=== PATIENT | female | born 1985 | race Caucasian/White ===

== ENCOUNTER 2020-06-01 18:13 | Emergency (ER) | payer SELFPAY ==
[2020-06-01 18:44] VITALS: BP 158/83; PULSE 84; RESP 20; TEMP 36.7; O2SAT 100; BMI 29.9
[2020-06-01 20:03] VITALS: BP 153/105; PULSE 83; RESP 18; O2SAT 96
--- NOTE | 2020-06-01 20:03 | ED_ITS ---
HPI - Headache General: Chief Complaint: Headache Stated Complaint: HEADACHE/ ELEVATED BLOOD PRESSURE Time Seen by Provider: 06/01/20 20:02 Source: patient Mode of arrival: ambulatory Limitations: no limitations History of Present Illness: HPI Narrative: Patient comes in today with complaints of headache since 8:00 this morning. Patient also reports some chest discomfort. Patient has a history of hypertension with treatment with diltiazem and lisinopril. Patient right now is incarcerated for outstanding warrant for no-show record. Patient reports a history of substance abuse with her last use of methamphetamines over 1 month. Patient reports history of a small stroke. No deficits noted. NIHSS is 0. Review of Systems General: Reports: 10 or more systems reviewed and unremarkable except in HPI and below Neuro: Reports: headache(s) [facility] ED Female Reproductive History: Date of last menstrual period: 04/30/20 Physical Exam Const: COMMON NORMALS: no acute distress and patient oriented x3 GENERAL APPEARANCE: cooperative HENMT: COMMON NORMALS: normocephalic and Normal external nose present HEAD & SCALP: normal to inspection and normocephalic NOSE: Normal external nose present MOUTH: Normal oral and palatal mucosa present THROAT: posterior oropharynx normal Eye: GENERAL EYE: appearance normal, both eyes and all related structures Neck/C-Spine: COMMON NORMALS: full ROM Lymph: LYMPHATIC: no lymphadenopathy noted Chest: COMMONS NORMALS: normal inspection of the chest Resp: COMMON NORMALS: normal respiratory effort EFFORT & INSPECTION: Yes able to speak in complete sentences Cardio: COMMON NORMALS: regular rate and regular rhythm RATE: regular rate RHYTHM: regular rhythm GI: COMMON NORMALS: non-tender Back/Pelvis: COMMON NORMALS: thoracic and lumbar spine normal to inspection Extremity: COMMON NORMALS: normal to inspection Neuro: COMMON NORMALS: patient oriented x3 and moves all extremities Psych: COMMON NORMALS: mental status grossly normal and cooperative Skin: COMMON NORMALS: no rashes or lesions noted GENERAL SKIN EXAM: no rashes or lesions noted Course Vital Signs: Vital signs: Vital Signs Temperature 98.1 F 06/01/20 18:44 Pulse Rate 88 06/01/20 20:30 Respiratory Rate 18 06/01/20 20:45 Blood Pressure 141/100 06/01/20 20:30 Pulse Oximetry 99 06/01/20 20:30 MDM - Headache MDM Narrative: Medical decision making narrative: Patient comes in with headache and chest discomfort. Patient reports uncontrolled blood pressure. Patient is recently been arrested and is in custody. Exam notes lungs are clear to auscultation. Heart rates regular. Normal EKG. Differential diagnosis includes CVA, hypertensive crisis, uncontrolled hypertension, ACS. EKG was normal sinus rhythm. Troponin was normal levels. Patient had symptoms since this morning so with no elevation of troponin levels at this time 12 hours after start of symptoms I do not feel is necessary for further testing. CT of the head noted no acute infarction or bleed. Laboratory values were unremarkable. Reviewed exam with patient with recommendations for treatment of blood pressure. Patient was treated for headache with Reglan and Benadryl with good results. Patient reported understanding of care plan and need for follow-up. Lab Data: Labs: Lab Results 06/01/20 06/01/20 06/01/20 Range/Units 20:32 20:32 20:32 WBC 15.1 H (4.0-10.0) 10^3/ uL RBC 4.64 (4.1-5.3) 10^6/u L Hgb 13.9 (11.5-15.3) g/dL Hct 41.5 (37.0-47.0) % MCV 89.4 (81-99) fL MCH 30.0 (28.0-34.0) pg MCHC 33.5 (30.0-36.0) g/dL RDW 12.0 L (12.1-15.1) % Plt Count 417 H (130-400) 10^3/c mm MPV 9.3 (7.4-10.4) fL Neut % (Auto) 71.8 % Lymph % (Auto) 19.3 % [place] % (Auto) 6.1 % Eos % (Auto) 1.9 % Baso % (Auto) 0.4 % Neut # (Auto) 10.84 H (1.8-7.7) 10^3/u L Lymph # (Auto) 2.9 (0.8-4.8) 10^3/u L [place] # (Auto) 0.9 (0.2-0.9) 10^3/u L Eos # (Auto) 0.3 (0.0-0.8) 10^3/u L Baso # (Auto) 0.1 (0.0-0.1) 10^3/u L Nucleated RBC % (a uto) 0 % Nucleated RBCs # 0.0 /100WBC Sodium 138 (136-145) mmol/L Potassium 3.9 (3.5-5.1) mmol/L Chloride 102 (98-107) mmol/L Carbon Dioxide 25 (22-29) mmol/L Anion Gap 14.9 (5-19) BUN 15 (6-20) mg/dL Creatinine 0.5 (0.5-0.9) mg/dL GFR Calculation 139.6 H (90-130) mL/min Glucose 91 (65-115) mg/dL Calculated Osmolal ity 286 (285-295) mOsm/k g Calcium 9.1 (8.5-10.5) mg/dL Total Bilirubin 0.6 (0.15-1.2) mg/dL AST 11 (0-32) U/L ALT 13 (0-33) U/L Alkaline Phosphata se 99 (35-105) IU/L Troponin T Gen 5 n g/L 6 (0-10) ng/L Total Protein 6.4 L (6.6-8.7) g/dL Albumin 4.1 (3.5-5.2) g/dL Globulin 2.3 (1.3-4.6) g/dL EKG Data^: EKG 1: Attestation: I personally reviewed and interpreted this EKG as follows: (2104, normal EKG, normal sinus rhythm with a rate of 77 bpm, no ectopy, no ST elev ation.) Discharge Plan Discharge Patient Disposition: Home Clinical Impression: Hypertension Qualifiers: Hypertension type: essential hypertension Qualified Code(s): I10 - Essential (primary) hypertension Condition: Stable Prescriptions: New hydrochlorothiazide 12.5 mg tablet 12.5 mg PO QAM Qty: 30 RF: 0 clonidine HCl 0.1 mg tablet 0.1 mg PO .qhs Qty: 30 RF: 0 Discharge Orders: Discharge Order (Routine); Ordered 06/01/20 Ordered By: Tay Triana Discharge Diet: Usual diet Discharge Activity: Increase activity as tolerated Patient Instructions: Hypertension (ED) Activity Restrictions/Additional Instructions: Activity as tolerated. Take medications as directed. Follow-up with primary care. Return to the emergency department for new concerns. Coding Level of Care Code ED Laundry Tub Maker for Chg Fwd Exam Comprehensive
--- NOTE | 2020-06-01 20:09 | ECG_ITS ---
[facility] Test Date: 2020-06-01 Pat Name: Cori De Souza Department: Room: Gender: Female Carousel Operator: : 1985 Requested By: Tay Evans Order Number: [id number] Burns MD: Paulette Eldridge M.D. Measurements Intervals [place] Rate: 77 P: 62 CO: 180 QRS: 53 QRSD: 92 T: 72 QT: 397 QTc: 451 Interpretive Statements SINUS RHYTHM No previous ECG available for comparison Electronically Signed On 06-02-2020 18:16:55 CDT by Paulette Eldridge M.D. [id number]
--- NOTE | 2020-06-01 20:09 | CTR_ITS ---
PROCEDURE INFORMATION: Exam: CT Head Without Contrast Exam date and time: 06/01/2020 8:13 PM Age: 34 years old Clinical indication: Pain; Headache not specified; Patient HX: C/O RODRÍGUEZ w HTN; Additional info: Headache, HTN TECHNIQUE: Imaging protocol: Computed tomography of the head without contrast. Radiation optimization: All CT scans at this facility use at least one of these dose optimization techniques: automated exposure control; mA and/or kV adjustment per patient size (includes targeted exams where dose is matched to clinical indication); or iterative reconstruction. COMPARISON: No relevant prior studies available. RADIATION DOSE METRICS: Total DLP (mGy-cm): 786.35 FINDINGS: Brain: Normal. No hemorrhage. Unremarkable white matter. No mass effect. Cerebral ventricles: No ventriculomegaly. Bones/joints: Unremarkable. No acute fracture. Paranasal sinuses: Visualized sinuses are unremarkable. No fluid levels. Mastoid air cells: Visualized mastoid air cells are well aerated. Soft tissues: Unremarkable. CT/CT head wo con* [id number] IMPRESSION: No acute intracranial abnormality. Radiation Dose CTDIVOL = (mGy): DLP = 786.35 (mGy-cm)
[2020-06-01 20:30] VITALS: BP 141/100; PULSE 88; RESP 18; O2SAT 99
[2020-06-01 20:45] VITALS: RESP 18
[2020-06-01 20:45] LABS: Basophils # 0.1 10^3/uL (0.0-0.1); Basophils % 0.4 %; Eosinophils # 0.3 10^3/uL (0.0-0.8); Eosinophils % 1.9 %; Hematocrit 41.5 % (37.0-47.0); Hemoglobin 13.9 g/dL (11.5-15.3); Lymphocytes # 2.9 10^3/uL (0.8-4.8); Lymphocytes % 19.3 %; Mean Corpuscular HGB Conc 33.5 g/dL (30.0-36.0); Mean Corpuscular Volume 89.4 fL (81-99); Mean Platelet Volume 9.3 fL (7.4-10.4); Monocytes # 0.9 10^3/uL (0.2-0.9); Monocytes % 6.1 %; Neutrophils # 10.84 10^3/uL (1.8-7.7); Neutrophils % 71.8 %; Nucleated Red Blood Cells % 0 %; Platelet Count 417 10^3/cmm (130-400); Red Blood Count 4.64 10^6/uL (4.1-5.3); White Blood Count 15.1 10^3/uL (4.0-10.0)
[2020-06-01] MEDS: sodium chloride 0.9% 500 ML 999 ML IV (20:45)
[2020-06-01] MEDS: metoclopramide 5 mg/mL SDV 2 mL 10 MG IVP (20:45)
[2020-06-01] MEDS: diphenhydrAMINE 50 mg/mL SDV 1mL 25 MG IVP (20:45)
[2020-06-01 21:12] LABS: Troponin T (5th) Once 6 ng/L (0-10)
[2020-06-01 21:13] LABS: Alanine Aminotransferase 13 U/L (0-33); Albumin Level 4.1 g/dL (3.5-5.2); Alkaline Phosphatase 99 IU/L (35-105); Anion Gap 14.9 (5-19); Aspartate Amino Transferase 11 U/L (0-32); Blood Urea Nitrogen 15 mg/dL (6-20); Calcium 9.1 mg/dL (8.5-10.5); Carbon Dioxide 25 mmol/L (22-29); Chloride 102 mmol/L (98-107); Globulin 2.3 g/dL (1.3-4.6); Glomerular Filtration Rate 139.6 mL/min (90-130); Glucose 91 mg/dL (65-115); Osmolality Calculated 286 mOsm/kg (285-295); Potassium 3.9 mmol/L (3.5-5.1); Sodium 138 mmol/L (136-145); Total Bilirubin 0.6 mg/dL (0.15-1.2); Total Protein 6.4 g/dL (6.6-8.7)
[2020-06-01 21:54] VITALS: BP 141/100
[2020-06-01] MEDS: cloNIDine 0.1 mg Tablet PO (21:54)
== END 2020-06-01 21:54 | disposition home or self-care (01) ==
PROVIDERS: Emergency Provider Nurse Practitioner Family
DX: I10 Essential (primary) hypertension (principal)
CPT/HCPCS: 12345; 70450; 80053; 84484; 85025; 93005; 96374; 96375; 99283; 99284; J1200; J2765; J7040

== ENCOUNTER 2020-10-15 14:18 | Emergency (ER) | payer SELFPAY ==
[2020-10-15 14:37] VITALS: BP 164/100; PULSE 72; RESP 18; TEMP 36.7; O2SAT 98; BMI 36.6
--- NOTE | 2020-10-15 15:12 | DCPLANNER ---
manager reading was asked to speak with patient about getting established with a primary care physician. manager reading spoke with patient, gave patient both of the statistical financial analyst applications for the hospital to fill out and turn in. Patient would like to be established with Dr. Jarquin, comp field case manager gave patient the number to Dr. Avila office, and told patient that she would have to call and get established with Dr. Jarquin. Patient stated that she would fill out the applications and would call the office of Dr. Jarquin and schedule an appointment.
--- NOTE | 2020-10-15 15:21 | PC.PHAR ---
PT STATES WHEN SHE WAS IN NURSING HOME 20 DAYS AGO THE NURSING HOME HAD HER TAKE CLONIDINE 0.1MG BID-PT STATES SHE HASNT HAD THIS MEDICATION FOR 2 WEEKS-EXT MED HISTORY SHOWS LAST FILLED ON 06/03/20 0.1MG PO DAILY-PT STATES SHE HAS BEEN OUT OF HER HCTZ FOR 2 WEEKS
--- NOTE | 2020-10-15 15:24 | W.ED.GENADLT ---
HPI - General Adult General: Chief complaint: General Medical Stated complaint: multiple complaints Time Seen by Provider: 10/15/20 14:46 History of Present Illness: HPI narrative: 34-year-old female presents emergency room concerned that she may have cancer. She palpated a lump in the right axilla. Most disturbed by the fact that her mother was recently diagnosed with cancer. 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 She does not have a PCP is also requesting refills on clonidine and hydrochlorothiazide which she has been out of for over 3 weeks. Onset (ago): day(s) Location: upper extremity (Right axilla) Associated symptoms: Deny chest pain, confusion, cough, diaphoresis, decreased appetite, dyspnea, fevers/chills, headache(s), malaise, nausea, rash, palpitations, seizures, short of breath, syncope, vomiting or weakness Treatments prior to arrival: none Review of Systems Const: Denies: malaise or diaphoresis ENMT: Denies: throat pain, ear or mastoid pain, nasal discharge or nasal congestion Card: Denies: chest pain, palpitations or syncope Resp: Denies: dyspnea GI: Denies: nausea or vomiting : Denies: flank pain, difficulty voiding, dysuria, urinary frequency or urinary urgency Skin/Breast: Denies: rash Neuro: Denies: headache(s) or confusion [facility] ED Female Reproductive History: Date of last menstrual period: 04/23/20 Physical Exam Const: COMMON NORMALS: no acute distress GENERAL APPEARANCE: cooperative and comfortable ORIENTATION/CONSCIOUSNESS: Yes awake, Yes oriented to person, Yes oriented to place and Yes oriented to time HENMT: COMMON NORMALS: normocephalic, atraumatic and hearing grossly normal bilaterally HEAD & SCALP: normocephalic and atraumatic Neck/C-Spine: COMMON NORMALS: no JVD Chest: OTHER: Breast exam with nurse present no lumps masses or lymphadenopathy abnormality noted. Resp: COMMON NORMALS: normal respiratory effort, No retractions, No use of accessory muscles and clear to auscultation bilaterally AUSCULTATION: clear to auscultation bilaterally Cardio: COMMON NORMALS: no JVD, regular rate, regular rhythm and No murmurs present (Cardio) RATE: regular rate RHYTHM: regular rhythm GI: COMMON NORMALS: Soft to palpation and No hepatosplenomegaly present AUSCULTATION: Yes normoactive bowel sounds PALPATION: Yes Soft to palpation, No Tenderness to palpation present (GI), No Guarding due to palpation present (GI) and Yes No hepatosplenomegaly present Extremity: COMMON NORMALS: normal to inspection, capillary refill normal, no clubbing, cyanosis or edema, no calf tenderness and no pedal edema NARRATIVE EXTREMITY EXAM: Right axillary nodule it is superficial in the skin consistent with a superficial abscess that involuted and scarred down. Neuro: SENSORIUM/ORIENTATION: Yes oriented to person, Yes oriented to place and Yes oriented to time Skin: COMMON NORMALS: no rashes or lesions noted GENERAL SKIN EXAM: no rashes or lesions noted Course Vital Signs: Vital signs: Vital Signs Temperature 98.0 F 10/15/20 14:37 Pulse Rate 72 10/15/20 14:37 Respiratory Rate 18 10/15/20 14:37 Blood Pressure 164/100 10/15/20 14:37 Pulse Oximetry 98 10/15/20 14:37 MDM - General Adult MDM Narrative: Medical decision making narrative: Discharge patient home recommend she follow-up with primary care PICC project construction manager will help establish with a primary care. She will need Pap smear and mammogram as well as other routine Discharge Plan Discharge Patient Disposition: Home Clinical Impression: Breast cancer screening Condition: Stable Prescriptions: No Action hydrochlorothiazide 12.5 mg tablet 12.5 mg PO QAM Qty: 30 RF: 0 Aleve 220 mg Tablet 220 mg PO PRN RF: 0 clonidine HCl 0.1 mg tablet 0.1 mg PO BID RF: 0 Discharge Orders: Discharge ED (Routine); Ordered 10/15/20 Ordered By: Jacky Jeong Discharge Diet: Usual diet Discharge Activity: Resume usual activity Patient Instructions: Opioid Safety Activity Restrictions/Additional Instructions: His management will call to schedule you with a primary care doctor to pursue routine health screenings and management of your blood pressure. Coding Level of Care Code ED Paralegal Internship for Alex Patel
--- NOTE | 2020-10-15 15:46 | PC.NURSE ---
breast exam per emd svp present
== END 2020-10-15 15:52 | disposition home or self-care (01) ==
PROVIDERS: Emergency Provider Family Medicine
DX: L98.9 Disorder of the skin and subcutaneous tissue, unspecified (principal)
CPT/HCPCS: 99281

== ENCOUNTER 2021-02-16 09:56 | Emergency (ER) | payer SELFPAY ==
[2021-02-16 10:00] VITALS: BP 167/96; PULSE 78; RESP 24; TEMP 36.3; O2SAT 98; BMI 33.3
--- NOTE | 2021-02-16 10:08 | ECG_ITS ---
[facility] Test Date: 2021-02-16 Pat Name: Cori De Souza Department: Room: Gender: Female Valuation Consultant: : 1985 Requested By: Selwyn Bhandari Order Number: [id number] Kat[place] MD: Chidi Valdivia M.D. Measurements Intervals [place] Rate: 74 P: 26 CO: 163 QRS: 38 QRSD: 92 T: 51 QT: 403 QTc: 448 Interpretive Statements SINUS RHYTHM Compared to ECG 06/01/2020 21:02:45 No significant changes Electronically Signed On 02-17-2021 21:03:03 CDT by Chidi Valdivia M.D. [id number]
--- NOTE | 2021-02-16 10:17 | PC.NURSE ---
Pt reports increased stress over her killing her dog.
--- NOTE | 2021-02-16 10:18 | W.ED.CHESTPA ---
HPI - Chest Pain General: Chief Complaint: Chest Pain Stated Complaint: CHEST PAIN; ANXIETY Time Seen by Provider: 02/16/21 10:11 History of Present Illness: HPI narrative: Presents today from [facility] where she has been in for the last 29 days for methamphetamine abuse. She presents with panic attack type symptoms which include shaking felt anxious chest pressure denies diaphoresis shortness of breath nausea or vomiting. Symptoms seem to start yesterday/today. Said she is having disagreement with her because he killed her dog yesterday. Patient has had panic attacks before has no cardiac history. Has been taking medications as prescribed MD complaint: chest discomfort Onset (ago): hour(s) Timing of current episode: constant Prior episodes: No Onset: awoke with symptoms Pain location: substernal Pain radiation: none Quality: heaviness Relieving factors: nothing Exacerbating factors: stress Context: other (Internally for methamphetamine abuse rehab schedule be out on the ) Associated symptoms: Reports no associated symptoms; Deny abdominal pain, dyspnea, fever(s), nausea or vomiting Treatment prior to arrival: none Review of Systems Const: Denies: fever(s), chills or body aches Eyes: Denies: change in vision or blurry vision ENMT: Denies: throat pain or nasal congestion Card: Reports: other (Pressure in chest); Denies: chest pain or dyspnea on exertion Resp: Denies: dyspnea, productive cough or non-productive cough GI: Denies: abdominal pain, nausea or vomiting Musc: Denies: extremity pain Skin/Breast: Denies: rash Neuro: Denies: headache(s) Psych: Reports: anxiety; Denies: depression Rusty/Lymph: Denies: easy bruising [facility] ED PFSH: Social History Smoking and tobacco status: current every day smoker Female Reproductive History: Date of last menstrual period: 04/23/20 Physical Exam Narrative: EXAM NARRATIVE: Patient appears to be shaking whether brought on by her or whether happened involuntary appears to be more anxiety related Const: COMMON NORMALS: no acute distress, average body habitus and patient oriented x3 HENMT: COMMON NORMALS: normocephalic HEAD & SCALP: normal to inspection and normocephalic FACE & SINUS: normal facial exam Eye: COMMON NORMALS: conjunctivae normal GENERAL EYE: appearance normal, both eyes and all related structures CONJUNCTIVA: Yes conjunctivae normal Neck/C-Spine: COMMON NORMALS: no JVD Chest: COMMONS NORMALS: normal inspection of the chest Resp: COMMON NORMALS: normal respiratory effort and clear to auscultation bilaterally AUSCULTATION: clear to auscultation bilaterally Cardio: COMMON NORMALS: no JVD, regular rate and regular rhythm RATE: regular rate RHYTHM: regular rhythm GI: COMMON NORMALS: Normal to inspection, nondistended, normoactive bowel sounds present Extremity: COMMON NORMALS: normal to inspection and full ROM Neuro: COMMON NORMALS: patient oriented x3 Course Vital Signs: Vital signs: Vital Signs Temperature 97.4 F L 02/16/21 10:00 Pulse Rate 70 02/16/21 12:10 Respiratory Rate 18 02/16/21 12:10 Blood Pressure 138/96 02/16/21 12:10 Pulse Oximetry 97 02/16/21 12:10 MDM - Chest Pain MDM Narrative: Medical decision making narrative: Labs negative. Patient responded very well to Ativan actually slept and snored while here. Patient agrees go back to [facility]. Discussed anxiety patient understands panic attacks and anxiety. Lab Data: Labs: Lab Results 02/16/21 02/16/21 02/16/21 Range/Units 10:25 10:25 10:25 WBC 9.7 (4.0-10.0) 10^3/ uL RBC 4.28 (4.1-5.3) 10^6/u L Hgb 13.1 (11.5-15.3) g/dL Hct 38.4 (37.0-47.0) % MCV 89.7 (81-99) fL MCH 30.6 (28.0-34.0) pg MCHC 34.1 (30.0-36.0) g/dL RDW 13.7 (12.1-15.1) % Plt Count 343 (130-400) 10^3/c mm MPV 9.1 (7.4-10.4) fL Neut % (Auto) 64.3 % Lymph % (Auto) 26.1 % [place] % (Auto) 6.1 % Eos % (Auto) 2.8 % Baso % (Auto) 0.4 % Neut # (Auto) 6.22 (1.8-7.7) 10^3/u L Lymph # (Auto) 2.5 (0.8-4.8) 10^3/u L [place] # (Auto) 0.6 (0.2-0.9) 10^3/u L Eos # (Auto) 0.3 (0.0-0.8) 10^3/u L Baso # (Auto) 0.0 (0.0-0.1) 10^3/u L Nucleated RBC % (a uto) 0 % Nucleated RBCs # 0.0 /100WBC Sodium 139 (136-145) mmol/L Potassium 4.1 (3.5-5.1) mmol/L Chloride 107 (98-107) mmol/L Carbon Dioxide 21 L (22-29) mmol/L Anion Gap 15.1 (5-19) BUN 14 (6-20) mg/dL Creatinine 0.6 (0.5-0.9) mg/dL GFR Calculation 112.5 (90-130) mL/min Glucose 93 (65-115) mg/dL Calculated Osmolal ity 288 (285-295) mOsm/k g Calcium 8.9 (8.5-10.5) mg/dL Total Bilirubin 0.7 (0.15-1.2) mg/dL AST 14 (0-32) U/L ALT 19 (0-33) U/L Alkaline Phosphata se 76 (35-105) IU/L Troponin T Baselin e 6 (0-10) ng/L Total Protein 6.0 L (6.6-8.7) g/dL Albumin 4.0 (3.5-5.2) g/dL Globulin 2.0 (1.3-4.6) g/dL EKG Data^: EKG 1: EKG interpretation date: 02/16/21 EKG interpretation time: 10:14 Computer generated interpretation: Normal sinus rhythm ventricular rate 74 bpm MA interval 163 ms cures duration 92 ms QT is 403 ms Discharge Plan Discharge Patient Disposition: Home Clinical Impression: Anxiety Condition: Stable Prescriptions: No Action venlafaxine 37.5 mg capsule,extended release 24hr 37.5 mg PO BID RF: 0 gabapentin 300 mg capsule 300 mg PO TID RF: 0 prazosin 2 mg capsule 2 mg PO BEDTIME RF: 0 hydroxyzine HCl 50 mg tablet 50 mg PO TID RF: 0 clonidine HCl 0.1 mg tablet 0.1 mg PO TID RF: 0 Discharge Orders: Discharge ED (Routine); Ordered 02/16/21 Ordered By: Yeison May Discharge Diet: Usual diet Discharge Activity: Resume usual activity Patient Instructions: Anxiety (ED) Activity Restrictions/Additional Instructions: Return back to [facility]. Take your present prescribed medication as necessary follow back up with your primary care provider as needed. Coding Level of Care Code ED Precision Mechanical Instrument Maker for Alex Fwd Exam Comprehensive
--- NOTE | 2021-02-16 10:19 | XRR_ITS ---
PROCEDURE INFORMATION: Exam: XR Chest Exam date and time: 02/16/2021 10:19 AM Age: 35 years old Clinical indication: Pain; On breathing; Additional info: Cp TECHNIQUE: Imaging protocol: XR of the chest. Views: 1 view. COMPARISON: No relevant prior studies available. FINDINGS: Lungs: Unremarkable. No consolidation. Pleural spaces: Unremarkable. No pleural effusion. No pneumothorax. Heart/Mediastinum: Unremarkable. No cardiomegaly. Bones/joints: Unremarkable. XR/XR chest 1V portable [id number] IMPRESSION: No acute findings.
[2021-02-16] MEDS: LORazepam 2 mg/mL INJ 1 mL IVP (10:31)
[2021-02-16 10:40] LABS: Basophils % 0.4 %; Eosinophils # 0.3 10^3/uL (0.0-0.8); Eosinophils % 2.8 %; Hematocrit 38.4 % (37.0-47.0); Hemoglobin 13.1 g/dL (11.5-15.3); Lymphocytes # 2.5 10^3/uL (0.8-4.8); Lymphocytes % 26.1 %; Mean Corpuscular HGB Conc 34.1 g/dL (30.0-36.0); Mean Corpuscular Hemoglobin 30.6 pg (28.0-34.0); Mean Corpuscular Volume 89.7 fL (81-99); Mean Platelet Volume 9.1 fL (7.4-10.4); Monocytes # 0.6 10^3/uL (0.2-0.9); Monocytes % 6.1 %; Neutrophils # 6.22 10^3/uL (1.8-7.7); Neutrophils % 64.3 %; Nucleated Red Blood Cells % 0 %; Platelet Count 343 10^3/cmm (130-400); Red Blood Count 4.28 10^6/uL (4.1-5.3); Red Cell Distribution Width 13.7 % (12.1-15.1); White Blood Count 9.7 10^3/uL (4.0-10.0)
[2021-02-16 11:00] VITALS: PULSE 75; RESP 19; O2SAT 99
[2021-02-16 11:01] LABS: Alanine Aminotransferase 19 U/L (0-33); Alkaline Phosphatase 76 IU/L (35-105); Anion Gap 15.1 (5-19); Aspartate Amino Transferase 14 U/L (0-32); Blood Urea Nitrogen 14 mg/dL (6-20); Calcium 8.9 mg/dL (8.5-10.5); Carbon Dioxide 21 mmol/L (22-29); Chloride 107 mmol/L (98-107); Glomerular Filtration Rate 112.5 mL/min (90-130); Glucose 93 mg/dL (65-115); Osmolality Calculated 288 mOsm/kg (285-295); Potassium 4.1 mmol/L (3.5-5.1); Sodium 139 mmol/L (136-145); Total Bilirubin 0.7 mg/dL (0.15-1.2)
[2021-02-16 11:47] LABS: Troponin(5th) Baseline 6 ng/L (0-10)
[2021-02-16 12:10] VITALS: BP 138/96; PULSE 70; RESP 18; O2SAT 97
--- NOTE | 2021-02-16 12:25 | PC.NURSE ---
Patient resting more comfortably after Ativan. Denies any needs at this time
== END 2021-02-16 12:10 | disposition home or self-care (01) ==
PROVIDERS: Emergency Provider Nurse Practitioner Family
DX: F41.9 Anxiety disorder, unspecified (principal); F17.210 Nicotine dependence, cigarettes, uncomplicated
CPT/HCPCS: 71045; 80053; 84484; 85025; 93005; 96374; 99283; J2060